=== PATIENT | male | born 1985 | race Caucasian/White ===

== ENCOUNTER 2017-01-18 12:46 | Emergency (ER) | payer OTHER ==
[~2017-01-18] VITALS: Ht 180.3 cm; Wt 79.4 kg
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
--- NOTE | 2017-01-18 14:24 | RADIOLOGY REPORT ---
EXAMINATION: XR FINGER, LEFT CLINICAL INFORMATION: Jammed left index finger, pain COMPARISON: None TECHNIQUE: Three views of the left second finger were obtained. FINDINGS: There is mild soft tissue swelling of the left second finger. No acute fracture or dislocation seen. There is no soft tissue air or radiodense foreign body. IMPRESSION: Mild soft tissue swelling of the left second finger without acute fracture.
[2017-01-18 14:29] VITALS: BP 148/74
== END 2017-01-18 14:30 ==
LOC: ERH 12:46
DX: S60.411A Abrasion of left index finger, initial encounter (principal); W23.1XXA Caught, crushed, jammed, or pinched between stationary objects, initial encounter; Y93.89 Activity, other specified; Y92.9 Unspecified place or not applicable
CPT/HCPCS: 73140-LT